=== PATIENT | male | born 2000 | race Caucasian/White ===

== ENCOUNTER 2022-03-23 23:42 | Emergency (ER) | payer SELFPAY ==
[~2022-03-23] VITALS: Ht 175.3 cm; Wt 82.0 kg
[2022-03-24] MEDS ORDERED: BACITRACIN ZINC OINT UDPKT TOP ONE (01:30)
[2022-03-24] MEDS ORDERED: HYDROCODONE/ACETAMINOPHEN 5/325MG TABLET PO ONE (01:30)
[2022-03-24] MEDS ORDERED: LIDOCAINE HCL/PF 1% 10 MG/ML 5ML VIAL INFIL ONE (01:30)
[2022-03-24] MEDS ORDERED: HYDR-4001 MT (02:58)
[2022-03-24] MEDS ORDERED: IBUP-2029 MT (02:58)
[2022-03-24] MEDS ORDERED: BO1 TP (02:58)
[2022-03-24 04:20] VITALS: BP 125/78
== END 2022-03-24 04:20 | disposition home or self-care (01) ==
LOC: ER 23:42
DX: S61.411A Laceration without foreign body of right hand, initial encounter (principal); S52.591A Other fractures of lower end of right radius, initial encounter for closed fracture; S90.31XA Contusion of right foot, initial encounter; S16.1XXA Strain of muscle, fascia and tendon at neck level, initial encounter; S39.012A Strain of muscle, fascia and tendon of lower back, initial encounter; V43.52XA Car driver injured in collision with other type car in traffic accident, initial encounter; Y93.89 Activity, other specified; Y92.488 Other paved roadways as the place of occurrence of the external cause
CPT/HCPCS: 29125; 72100; 73090; 73100; 73120; 73620; 99284; J3490; Z7610; A4565